=== PATIENT | female | born 1995 | race Caucasian/White ===

== ENCOUNTER 2018-10-21 19:03 | Emergency (ER) | payer SELFPAY ==
--- NOTE | 2018-10-21 19:23 | ED Physician Documentation ---
General Adult - HISTORIAN Historian: patient - HPI Stated Complaint: dysuria Chief Complaint: General Adult Onset: hours Timing: still present Severity: moderate Further Comments: yes (Pt is 23 yo female with dysuria. Pt feels pressure in her lower abd when she tries to void. Pt has had sx x 2 weeks. Mild back pain. No fever. No n/v.) - ROS CONST: no problems EYES/ENT: none CVS/RESP: none GI/: problems urinating MS/SKIN/LYMPH: none - PAST HX Past History: none Allergies/Adverse Reactions: Allergies Allergy/AdvReac Type Severity Reaction Status Date / Time No Known Drug Allergies Allergy Verified 10/21/18 19:53 Home Medications: Ambulatory Orders Medication Instructions Recorded Sulfamethoxazole/Trimethoprim 1 each PO BID #14 tab 10/21/18 [Bactrim Ds] - SOCIAL HX Smoking History: cigarettes - FAMILY HX Family History: No - VITAL SIGNS Vital Signs: Vital Signs Temp Pulse Resp BP Pulse Ox 115/79 11/22/15 13:13 - REVIEWED ASSESSMENTS Nursing Assessment Reviewed: Yes Vitals Reviewed: Yes Progress - Progress Progress: Rx Bactrim DS. Take one every 12 hours for 7 days. General Adult Physical Exam - PHYSICAL EXAM GENERAL APPEARANCE: mild distress EENT: pharynx normal NECK: normal inspection, supple RESPIRATORY: no resp distress, chest non-tender, breath sounds normal CVS: reg rate & rhythm, heart sounds normal ABDOMEN: soft, no organomegaly, normal bowel sounds, tenderness (suprapubic) BACK: normal inspection, CVA tenderness (L) (slight) SKIN: warm/dry, normal color EXTREMITIES: non-tender, normal range of motion, no evidence of injury, no edema NEURO: oriented X3, motor nml, sensation nml Discharge Clincal Impression: UTI (urinary tract infection) Qualifiers: Urinary tract infection type: site unspecified Hematuria presence: with hematuria Qualified Code(s): N39.0 - Urinary tract infection, site not specified Prescriptions: Sulfamethoxazole/Trimethoprim [Bactrim Ds] 1 each PO BID #14 tab Referrals: Sara Sequeira MD [Primary Care Provider] - Condition: Good Disposition: 01 HOME, SELF-CARE Decision to Admit: NO Decision Time: 19:42
[2018-10-21] MEDS ORDERED: SULFAMETHOXAZOLE/TRIMETHOPRIM 800/160MG TAB PO ONE (19:41)
[2018-10-21 20:09] VITALS: BP 112/65
[2018-10-22 02:46] LABS: APPEARANCE,URINE CLOUDY (CLEAR); COLOR,URINE YELLOW (YELLOW); OCCULT BLOOD,URINE 1+ (NEGATIVE)
== END 2018-10-21 20:03 | disposition home or self-care (01) ==
LOC: ED 19:03
DX: N39.0 Urinary tract infection, site not specified (principal)
CPT/HCPCS: 81002; 99283; A9270